=== PATIENT | female | born 1930 | race Caucasian/White ===

== ENCOUNTER 2019-07-27 15:35 | Observation (INO) | payer MEDICARE ==
[2019-07-27 16:14] LABS: #Basophils 0.1 thou/uL (0.0-0.2); #Eosinphils 0.3 thou/uL (0.0-0.7); #Lymphocytes 1.5 thou/uL (1.20-3.40); #Monocytes 0.8 thou/uL (0.11-0.59); %Basophils 0.9 % (0.0-1.0); %Eosinophils 3.5 % (0.0-10.0); %Lymphocytes 17.2 % (21.0-51.0); %Monocytes 9.1 % (0.0-10.0); %Neutrophils 69.3 % (42.0-75.0); Hemoglobin 15.8 g/dL (12.0-16.0); Mean Corpuscular HGB CONC 34.1 g/dL (32.0-36.0); Mean Corpuscular Hemoglobin 32.7 pg (27.0-31.0); Mean Platelet Volume 8.2 fL (7.4-10.4); Platelet Count 264 thou/uL (130-400); RBC Distribution Width 11.2 % (11.5-14.5); Red Blood Cell (RBC) Count 4.84 mill/uL (4.20-5.40); White Blood Cell (WBC) Count 8.7 thou/uL (4.8-10.8)
[2019-07-27 16:37] LABS: ALT (SGPT) 11 U/L (8-55); AST (SGOT) 19 U/L (5-34); Albumin 4.1 g/dL (3.4-4.8); Alkaline Phosphatase 83 U/L (40-110); Anion Gap 14 mmol/L (10-20); BUN (Urea Nitrogen) 12 mg/dL (9.8-20.1); Bilirubin, Total 0.8 mg/dL (0.2-1.2); CK (CPK) 96 U/L (29-168); Calc. Creatinine Clearance 0 mL/min (70-130); Calcium 8.6 mg/dL (7.8-10.44); Carbon Dioxide 21 mmol/L (23-31); Chloride 107 mmol/L (98-107); Estimated GFR-MDRD 50; Globulin 3.4 g/dL (2.4-3.5); Glucose 98 mg/dL (83-110); Lipase 41 U/L (8-78); Potassium 3.8 mmol/L (3.5-5.1); Protein, Total 7.5 g/dL (6.0-8.3); Sodium 138 mmol/L (136-145)
--- NOTE | 2019-07-27 16:49 | RAD ---
EXAM: CHEST ONE VIEW: 07/27/19 HISTORY: Chest pain. Palpitations. Chest pressure. COMPARISON: 11/25/15. FINDINGS: Minimal horizontal linear parenchymal changes in the left base, stable. Heart size is within normal l imits. No confluent pneumonia, overt edema, or pleural effusion. IMPRESSION: No significant acute intrathoracic disease. Minimal linear chronic changes in the left base. POS: [facility]
[2019-07-27] MEDS ORDERED: Mag-Al 1200 mg/1200 mg/30 ML UDCUP ONE (18:19)
[2019-07-27] MEDS ORDERED: Lidocaine Viscous Sol 2% 15 ml UD Cup ONE (18:19)
[2019-07-27 19:41] LABS: Troponin I Less than 0.010 ng/mL (< 0.028)
--- NOTE | 2019-07-27 19:45 | ULT ---
ULTRASOUND DOPPLER DUPLEX VENOUS LEFT LOWER EXTREMITY: DATE: 07/27/2019 HISTORY: 89-year-old female with left lower extremity edema TECHNIQUE: Grayscale, color-flow, and spectral analysis, of major veins of left lower extremity. FINDINGS: There is demonstration of blood flow with normal compressibility, of the left common femoral, profund a femoral, greater saphenous, femoral, popliteal, and posterior tibial, veins. IMPRESSION: Negative. No deep venous thrombosis of left lower extremity.
[2019-07-27] MEDS ORDERED: Acetaminophen 325 MG TAB PO PRN ×2 (21:02→22:31)
[2019-07-27] MEDS ORDERED: Ondansetron ODT 4 MG TAB SL PRN (21:02)
[2019-07-27] MEDS ORDERED: Ondansetron PF 4 MG/2 ML Vial IVP PRN ×2 (21:02→22:31)
[2019-07-27 22:09] VITALS: BMI 22.8
[2019-07-27 22:21] LABS: Troponin I Less than 0.010 ng/mL (< 0.028)
[2019-07-27] MEDS ORDERED: Ondansetron ODT 4 MG TAB PO PRN (22:31)
[2019-07-27] MEDS ORDERED: Acetaminophen 650 MG Suppository PR PRN (22:31)
--- NOTE | 2019-07-27 23:11 | PDOC.HHP ---
Hospitalist HPI - History of Present Illness Palpitations and nausea History of Present Illness: Patient presents complaining of an episode of palpitations. When asked about reported chest pain she states she never did or has experienced chest pain. Patient states this episode was brief and reports having some increased belching and epigastric discomfort. States she has issues with severe reflux and has been waiting to see a GI doctor. Requesting to be evaluated by one while she is here since she wont be able to go back home to [place] for several days. States she has also been having issues with urine and stool incontinence for the last 2 years since due to "fractured spine" and requesting to be evaluated for that as well. Patient reports she was going to be seeing a Urologist and wanting to see one while she is here. Patient also mentioned long standing pain in left 2nd toe with no history of injury. I have confirmed that at present she does not feel nauseated and is not experiencing palpitations and those are in fact that main symptoms that brought her in today. She reports feeling lightheaded when the palpitations occur. Denies any shortness of breath. No cough or hemoptysis. Complaints of long standing issues with varicose veins and occasional swelling in her legs. Patient reports having a history of afib and is on Eliquis. ED Course: EKG done in the ED showed NSR with HR of 62. No ST changes, t waves were normal. CXR: No significant acute intrathoracic disease. Minimal linear chronic changes in the left base. Labs: Normal FBC. BUN 12, creat 1.03, GFR 50 (no baseline for comparison). LFTs normal. Trop negative x 2. D-dimer 0.57. Venous doppler done showed no evidence of DVT. GI cocktail given in ED, patient states it helped. Has been asymptomatic since. Hospitalist ROS - Review of Systems Constitutional: denies: fever, chills, sweats, weakness, malaise, other Eyes: denies: pain, vision change, conjunctivae inflammation, eyelid inflammation, redness, other ENT: denies: ear pain, ear discharge, nose pain, nose discharge, nose congestion , mouth pain, mouth swelling, throat pain, throat swelling, other Respiratory: denies: cough, dry, shortness of breath, hemoptysis, SOB with excertion, pleuritic pain, sputum, wheezing, other Cardiovascular: reports: palpitations. denies: chest pain, orthopnea, paroxysmal noc. dyspnea, edema, light headedness, other Gastrointestinal: reports: nausea, abdominal pain (epigastric burning with reflux), other (occasional stool incontinence/urgency, no paraesthesias/numbness , x 2 years). denies: vomiting, diarrhea, constipation, melena, hematochezia Genitourinary: reports: frequency, incontinence (occasional, awaiting urology evaluation in [place]) Musculoskeletal: reports: foot pain (pain to left 2nd toe) Neurological: denies: weakness, numbness, incoordination, change in speech, confusion, seizures, other Hospitalist History - Past Medical History Source: patient Cardiac: reports: AFIB, HTN Endocrine: reports: Hyperthyroidism - Past Surgical History Past Surgical History: reports: Total Hip Replacement (right hip) - Family History Family History: reports: no pertinent history - Social History Smoking Status: Never smoker Alcohol: reports: Occassional (drinks a glass of wine daily) Living Situation: With Family Activity level: uses cane/walker (able to walk independently, sometimes requires her walker) - Exam General Appearance: NAD, awake alert Eye: PERRL, anicteric sclera ENT: dry oral mucosa Neck: supple, no lymphadenopathy Heart: RRR, normal peripheral pulses Respiratory: CTAB, normal chest expansion, no tachypnea Gastrointestinal: soft, non-tender, non-distended, no guarding, no rigidity Extremities: no edema Extremities - other findings: dry skin Skin: no rashes Neurological: cranial nerve grossly intact, normal sensation to touch Musculoskeletal: normal tone, normal strength, no muscle wasting Psychiatric: normal affect, normal behavior, A&O x 3 Hospitalist Results - Labs Result Diagrams: 07/27/19 16:01 07/27/19 16:01 Lab results: WBC 8.7 thou/uL (4.8-10.8) 07/27/19 16:01 Hgb 15.8 g/dL (12.0-16.0) 07/27/19 16: Hct 46.4 % (36.0-47.0) 07/27/19 16:01 MCV 96.0 fL (78.0-98.0) 07/27/19 16:01 Plt Count 264 thou/uL (130-400) 07/27/19 16:01 Neutrophils % 69.3 % (42.0-75.0) 07/27/19 16:01 Sodium 138 mmol/L (136-145) 07/27/19 16:01 Potassium 3.8 mmol/L (3.5-5.1) 07/27/19 16:01 Chloride 107 mmol/L (98-107) 07/27/19 16:01 Carbon Dioxide 21 mmol/L (23-31) L 07/27/19 16:01 BUN 12 mg/dL (9.8-20.1) 07/27/19 16:01 Creatinine 1.03 mg/dL (0.6-1.1) 07/27/19 16:01 Glucose 98 mg/dL (83-110) 07/27/19 16:01 Calcium 8.6 mg/dL (7.8-10.44) 07/27/19 16:01 Total Bilirubin 0.8 mg/dL (0.2-1.2) 07/27/19 16:01 AST 19 U/L (5-34) 07/27/19 16:01 ALT 11 U/L (8-55) 07/27/19 16:01 Alkaline Phosphatase 83 U/L (40-110) 07/27/19 16:01 Creatine Kinase 96 U/L (29-168) 07/27/19 16:01 Troponin I Less than 0.010 ng/mL (< 0.028) 07/27/19 21:48 Serum Total Protein 7.5 g/dL (6.0-8.3) 07/27/19 16:01 Albumin 4.1 g/dL (3.4-4.8) 07/27/19 16:01 Lipase 41 U/L (8-78) 07/27/19 16:01 - Radiology Interpretation Chest x-ray Status: report reviewed by nd Hospitalist H&P A/P - Problem (1) Palpitations Code(s): R00.2 - PALPITATIONS Status: Acute (2) Nausea Code(s): R11.0 - NAUSEA Status: Acute (3) Lightheaded Code(s): R42 - DIZZINESS AND GIDDINESS Status: Acute (4) GERD (gastroesophageal reflux disease) Code(s): K21.9 - GASTRO-ESOPHAGEAL REFLUX DISEASE WITHOUT ESOPHAGITIS Status: Chronic (5) Urine incontinence Code(s): R32 - UNSPECIFIED URINARY INCONTINENCE Status: Chronic (6) Toe pain, chronic Code(s): M79.676 - PAIN IN UNSPECIFIED TOE(S); G89.29 - OTHER CHRONIC PAIN Status: Chronic (7) History of atrial fibrillation Code(s): Z86.79 - PERSONAL HISTORY OF OTHER DISEASES OF THE CIRCULATORY SYSTEM Status: Chronic (8) Hyperlipidemia Code(s): E78.5 - HYPERLIPIDEMIA, UNSPECIFIED Status: Chronic Qualifiers: Hyperlipidemia type: unspecified Qualified Code(s): E78.5 - Hyperlipidemia , unspecified (9) Hypertension Code(s): I10 - ESSENTIAL (PRIMARY) HYPERTENSION Status: Chronic Qualifiers: Hypertension type: essential hypertension Qualified Code(s): I10 - Essential (primary) hypertension (10) Hypothyroidism Code(s): E03.9 - HYPOTHYROIDISM, UNSPECIFIED Status: Chronic Qualifiers: Hypothyroidism type: unspecified Qualified Code(s): E03.9 - Hypothyroidism , unspecified - Plan Plan: Continue to trend troponins, add TSH, Mg+ and BNP. Cardiac monitoring. Rule out underlying UTI. Bladder scan, post void, to rule out retention. Famotidine for reflux. Reconcile home meds once verified. Orthostatic BP. Gentle hydration. Patient with multiple chronic complaints, likely to be addressed by her PCP. CODE STATUS: FULL Surrogate decision maker: Cassie Jorge, her [id number].
[2019-07-28 02:51] LABS: Bacteria/HPF None Seen HPF (None Seen); Bilirubin Negative (Negative); Blood, Urine Negative (Negative); Clarity Clear (Clear); Glucose, Urine (Dipstick) Normal (Negative); Leukocyte 25 Leu/uL (Negative); Nitrite Negative (Negative); Protein, Urine (Dipstick) Negative (Neg-Trace); RBC/HPF 0-3 HPF (0-3); Squamous Epithelial 0-3 HPF (0-3); Urobilinogen Normal mg/dL (Less than 2); WBC/HPF 0-3 HPF (0-3)
[2019-07-28 02:52] LABS: Urine Culture Reflex No No
[2019-07-28 04:31] LABS: #Basophils 0.1 thou/uL (0.0-0.2); #Eosinphils 0.3 thou/uL (0.0-0.7); #Lymphocytes 1.2 thou/uL (1.20-3.40); #Monocytes 0.7 thou/uL (0.11-0.59); #Neutrophils 3.3 thou/uL (1.40-6.50); %Basophils 1.3 % (0.0-1.0); %Eosinophils 6.1 % (0.0-10.0); %Lymphocytes 21.5 % (21.0-51.0); %Monocytes 12.1 % (0.0-10.0); Hemoglobin 13.8 g/dL (12.0-16.0); Mean Corpuscular HGB CONC 33.7 g/dL (32.0-36.0); Mean Corpuscular Volume 95.1 fL (78.0-98.0); Platelet Count 237 thou/uL (130-400); RBC Distribution Width 11.3 % (11.5-14.5); Red Blood Cell (RBC) Count 4.32 mill/uL (4.20-5.40); White Blood Cell (WBC) Count 5.5 thou/uL (4.8-10.8)
[2019-07-28 04:57] LABS: Anion Gap 10 mmol/L (10-20); BUN (Urea Nitrogen) 11 mg/dL (9.8-20.1); Calc. Creatinine Clearance 48 mL/min (70-130); Calcium 7.9 mg/dL (7.8-10.44); Carbon Dioxide 25 mmol/L (23-31); Chloride 109 mmol/L (98-107); Estimated GFR-MDRD 70; Glucose 96 mg/dL (83-110); Potassium 3.7 mmol/L (3.5-5.1); Sodium 140 mmol/L (136-145)
[2019-07-28] MEDS: Levothyroxine Sodium 25 MCG TAB PO SCH (05:43)
[2019-07-28] MEDS ORDERED: Famotidine/PF 20 mg/2ml Vial SLOW IVP SCH (09:00)
[2019-07-28] MEDS: Apixaban 2.5 MG TAB PO SCH ×2 (09:16→19:42)
[2019-07-28] MEDS: Aspirin 81 mg Enteric Coated Tablet PO SCH (09:17)
--- NOTE | 2019-07-28 15:17 | CON ---
DATE OF CONSULTATION: 07/28/2019 REASON FOR CONSULTATION: Palpitations and chest discomfort. PRIMARY CORPORATE ACCOUNTANT: Tj Fletcher MD HISTORY OF PRESENT ILLNESS: Ms. Jorge is a very pleasant 89-year-old white female, who comes to the hospital for several complaints. She is very adamant that she never said pain to any of the physicians. When everyone keeps asking about chest pain, she denies it. However, when I asked her if she had any chest discomfort, she said she did feel last night some discomfort in the midsternal area. She feels it is her reflux. She states that she felt nauseated and diaphoretic. This lasted for about an hour. She felt palpitations at the same time. She called EMS. When EMS arrived, they gave her sublingual nitroglycerin, which did not make her symptoms improved. She then got four baby aspirins, which she says made her symptoms a lot better. Eventually, her symptoms had resolved by the time she was in the ER here in the hospital. She was admitted for further evaluation. She was ruled out with negative troponins. Cardiology is being consulted for further evaluation and care. PAST MEDICAL HISTORY: 1. History of atrial fibrillation. 2. Hypertension. 3. Hyperthyroidism. 4. Vitamin D deficiency. PAST SURGICAL HISTORY: 1. Hip fracture repair. 2. Heart catheterization some years ago, which was unremarkable. FAMILY HISTORY: Noncontributory. SOCIAL HISTORY: Occasional alcohol use. No tobacco or drugs. OUTPATIENT MEDICATIONS: 1. Eliquis 2.5 mg b.i.d. 2. Sublingual nitroglycerin p.r.n. 3. Diltiazem 240 mg a day. 4. Calcium carbonate 500 mg q.i.d. 5. Aspirin 81 a day. 6. Atorvastatin 40 mg at bedtime. 7. Metoprolol succinate 25 mg a day. 8. Levothyroxine 25 mcg a day. ALLERGIES: NO KNOWN DRUG ALLERGIES. REVIEW OF SYSTEMS: A 12-point review of systems was done and was all negative unless stated in the history of present illness. PHYSICAL EXAMINATION: VITAL SIGNS: Temperature 98.6, pulse 58, respiratory rate 16, satting 97% on room air, blood pressure 136/67. GENERAL: Awake, alert, oriented x3, in no distress. HEENT: Normocephalic, atraumatic. NECK: Supple. LUNGS: Clear. CARDIOVASCULAR: S1, S2. No S3 or S4. No murmurs. ABDOMEN: Soft. Positive bowel sounds. EXTREMITIES: No edema. SKIN: Warm and dry. LABORATORY DATA: Laboratory work was reviewed. CBC was unremarkable. D-dimer was mildly elevated. Chemistry was unremarkable. Troponin was negative x2. BNP was 236. TSH was 3.5. UA was unremarkable. Chest x-ray was reviewed. Venous ultrasound showed no evidence of DVT. I cannot find results of heart catheterization. However, looking at discharge summary, there was no flow-limiting disease. This was back in July of 2015, just four years ago. ASSESSMENT: 1. Chest discomfort. It is certainly atypical and likely gastroesophageal reflux disease. 2. Minimal coronary artery disease in heart catheterization four years ago. 3. Several other complaints like lower extremity edema with negative ultrasound for deep venous thrombosis. She also has some kidney issues that she wishes to see a urologist for. PLAN: 1. Unlikely to be a cardiac issue. At this time, we will get a stress with an echo. If this is unremarkable, she may be discharged home with followup. 2. She states that she lives in [place] and she is only here visiting her children. She has been here since April though and there is no certain time for her to go back given the coronavirus outbreak. Thank you for letting us participate in the care of your patient. Dr. Fletcher, her primary oracle consultant, will follow up in the morning. Job ID: [id number]
--- NOTE | 2019-07-28 16:32 | PDOC.HOSPP ---
- Subjective Encounter Date: 07/28/19 Encounter Time: 15:00 Subjective: Patient seen and examined for CP/Palpitations. No new CP or palpitations. No other complaints. No overnight events - Objective Vital Signs & Weight: Vital Signs (12 hours) Temp Pulse Resp BP Pulse Ox 07/28/19 15:41 98.3 F 71 16 165/85 H 97 07/28/19 11:40 98.6 F 58 L 16 146/68 H 97 07/28/19 07:25 98.5 F 58 L 16 136/67 94 L Weight Weight 136 lb 14.4 oz I&O: 07/27/19 07/28/19 07/29/19 06:59 06:59 06:59 Intake Total 150 Output Total 260 Balance -110 Result Diagrams: 07/28/19 04:23 07/28/19 04:23 EKG Reviewed by me: Yes (Tele SR) Hospitalist ROS - Review of Systems Respiratory: denies: cough, dry, shortness of breath, hemoptysis, SOB with excertion, pleuritic pain, sputum, wheezing, other Cardiovascular: denies: chest pain, palpitations, orthopnea, paroxysmal noc. dyspnea, edema, light headedness, other Gastrointestinal: denies: nausea, vomiting, abdominal pain, diarrhea, constipation, melena, hematochezia, other - Medication Medications: Active Medications Generic Name Dose Route Start Last Admin Trade Name Freq PRN Reason Stop Dose Admin Apixaban 2.5 mg 07/28/19 09:00 07/28/19 09:16 Eliquis PO 2.5 mg BID EDGAR Administration Aspirin 81 mg 07/28/19 09:00 07/28/19 09:17 Ecotrin PO 81 mg DAILY EDGAR Administration Diltiazem HCl 240 mg 07/28/19 09:00 07/28/19 09:22 Cardizem Cd PO Not Given DAILY EDGAR Levothyroxine Sodium 25 mcg 07/28/19 06:00 07/28/19 05:43 Synthroid PO 25 mcg 0600 EDGAR Administration Metoprolol Succinate 25 mg 07/28/19 09:00 07/28/19 09:23 Toprol Xl PO Not Given DAILY EDGAR Sodium Chloride 10 ml 07/28/19 09:00 07/28/19 09:17 Flush - Normal Saline IVF 10 ml Q12HR EDGAR Administration - Exam General Appearance: NAD Neck: supple, no JVD Heart: RRR, no gallops, no rubs, normal peripheral pulses Respiratory: no wheezes, no rales, no ronchi, normal chest expansion Gastrointestinal: soft, non-tender, non-distended, normal bowel sounds Extremities: no cyanosis, no clubbing, no edema Neurological: no new deficit Psychiatric: normal affect, A&O x 3 Hosp A/P - Plan DVT proph w/SCDs CP/Palpitations Par Afib on anticoag HTN HLD CKD 3 CAD Hypothyroidism PLAN: Cont ASA/Eliquis Cont Toprol/Cardizem Await Stess test/Echo per Cardiology Cont other meds as above
[2019-07-28] MEDS ORDERED: Atorvastatin Calcium 40 MG TAB PO SCH (21:00)
[2019-07-29] MEDS: Levothyroxine Sodium 25 MCG TAB PO SCH (04:57)
[2019-07-29] MEDS: Apixaban 2.5 MG TAB PO SCH (07:56)
[2019-07-29] MEDS: Aspirin 81 mg Enteric Coated Tablet PO SCH (07:56)
[2019-07-29] MEDS ORDERED: Famotidine/PF 20 mg/2ml Vial SLOW IVP SCH (09:00)
[2019-07-29] MEDS ORDERED: ADENOSINE 60 MG/20 ML VIAL ONE (09:03)
--- NOTE | 2019-07-29 10:23 | PDOC.HOSPP ---
- Subjective Encounter Date: 07/29/19 Encounter Time: 08:00 Subjective: Patient seen and examined for CP - resolved. No new complaints. No overnight events - Objective Vital Signs & Weight: Vital Signs (12 hours) Temp Pulse Resp BP BP BP Pulse Ox 07/29/19 07:49 98 F 66 16 148/73 H 94 L 07/29/19 04:52 176/66 H 122/70 134/78 07/29/19 03:00 98.1 F 88 16 166/76 H 95 Weight Weight 139 lb 11.2 oz I&O: 07/28/19 07/29/19 07/30/19 06:59 06:59 06:59 Intake Total 150 520 Output Total 260 675 Balance -110 -155 Result Diagrams: 07/28/19 04:23 07/28/19 04:23 EKG Reviewed by me: Yes (Tele SR) Hospitalist ROS - Review of Systems Cardiovascular: denies: chest pain, palpitations, orthopnea, paroxysmal noc. dyspnea, edema, light headedness, other Gastrointestinal: denies: nausea, vomiting, abdominal pain, diarrhea, constipation, melena, hematochezia, other - Medication Medications: Active Medications Generic Name Dose Route Start Last Admin Trade Name Freq PRN Reason Stop Dose Admin Apixaban 2.5 mg 07/28/19 09:00 07/29/19 07:56 Eliquis PO 2.5 mg BID EDGAR Administration Aspirin 81 mg 07/28/19 09:00 07/29/19 07:56 Ecotrin PO 81 mg DAILY EDGAR Administration Atorvastatin Calcium 40 mg 07/28/19 21:00 07/28/19 19:42 Lipitor PO 40 mg HS EDGAR Administration Diltiazem HCl 240 mg 07/28/19 09:00 07/29/19 10:15 Cardizem Cd PO Not Given DAILY EDGAR Famotidine 20 mg 07/29/19 09:00 07/29/19 07:56 Pepcid SLOW IVP 20 mg DAILY EDGAR Administration Levothyroxine Sodium 25 mcg 07/28/19 06:00 07/29/19 04:57 Synthroid PO 25 mcg 0600 EDGAR Administration Metoprolol Succinate 25 mg 07/28/19 09:00 07/29/19 10:15 Toprol Xl PO Not Given DAILY EDGAR Sodium Chloride 10 ml 07/28/19 09:00 07/29/19 07:57 Flush - Normal Saline IVF 10 ml Q12HR EDGAR Administration Sodium Chloride 10 ml 07/27/19 21:02 07/28/19 19:42 Flush - Normal Saline IVF 10 ml PRN PRN Administration Saline Flush - Exam General Appearance: NAD Heart: RRR, no gallops Respiratory: no wheezes, no ronchi Gastrointestinal: non-tender, non-distended, normal bowel sounds Extremities: no cyanosis Neurological: no new deficit Hosp A/P - Plan DVT proph w/SCDs CP/Palpitations Par Afib HTN HLD CKD 3 CAD Hypothyroidism PLAN: Cont ASA/Eliquis/Toprol/Cardizem Await Stess test/Echo Cardio input Cont other meds as above
--- NOTE | 2019-07-29 11:07 | NM ---
EXAM: NM Cardiac Stress W EF WF PROVIDED CLINICAL HISTORY: Chest pain COMPARISON: None RADIOPHARMACEUTICAL: 28.8 millicuries technetium 99m labeled sestamibi IV stress 10.3 millicuries technetium 99m labeled sestamibi IV rest FINDINGS: There is a moderate area of moderately reduced radiotracer activity involving the lateral wall, prese nt at both rest and nonattenuated corrected stress. This demonstrates improvement on the attenuation correction stress images, compatible with soft tissue attenuation. There is no evidence f or reversibility to suggest ischemia. Gated data demonstrate normal myocardial wall motion and thickening with calculated LVEF 80%. Calculated TID is 1.08. IMPRESSION: 1. No scintigraphic evidence for ischemia. 2. Calculated LVEF 80%.
[2019-07-29 11:08] VITALS: TEMP 97.9
[2019-07-29 11:51] VITALS: BP 151/95
--- NOTE | 2019-07-29 14:04 | DIS ---
DATE OF ADMISSION: 07/27/2019 DATE OF DISCHARGE: 07/29/2019 DISCHARGE DISPOSITION: Home. FOLLOWUP: 1. Follow up with primary care physician in 1 week. 2. Follow up with Dr. Fletcher in 1 to 2 weeks. ALLERGIES: NO KNOWN DRUG ALLERGIES. DISCHARGE MEDICATIONS: Toprol-XL was discontinued per Cardiology recommendation. Protonix was added. All other home medications were left unchanged. INPATIENT STRIP FEEDER: Cardiology, Dr. Fletcher. The patient was seen and examined on the day of discharge. Please refer to my progress note for details. BRIEF HOSPITAL COURSE: The patient is an 89-year-old female with paroxysmal atrial fibrillation and hypertension, presented to the emergency room with palpitations along with chest discomfort. Please refer to the history and physical for further details. The patient was admitted to the hospital with a diagnosis of chest discomfort along with palpitations. She was found to have significant bradycardia with heart rate in 40s to 50s. For this reason, Toprol-XL was discontinued. She was evaluated by Cardiology, Dr. Fletcher. She underwent a Cardiolite stress test that was negative for reversible ischemia. There was no wall motion abnormalities. Ejection fraction was 80% with TID of 1.08. Toprol-XL was discontinued per Cardiology recommendation. She has been cleared by Cardiology for discharge. She was advised to follow up with Cardiology as outpatient. SIGNIFICANT LABORATORY DATA: BNP 236. Troponin was negative. BUN 12, creatinine 1.03. FINAL DIAGNOSES: 1. Chest discomfort. 2. Palpitations. 3. Paroxysmal atrial fibrillation. 4. Chronic anticoagulation. 5. Hypertension. 6. Hyperlipidemia. 7. Chronic kidney disease, stage 3. 8. Coronary artery disease. 9. Hypothyroidism. 10. Gastroesophageal reflux disease. The patient understands the above plan of care. Job ID: [id number]
--- NOTE | 2019-08-02 15:42 | EKG ---
Test Reason : Blood Pressure : / mmHG Vent. Rate : 062 BPM Atrial Rate : 062 BPM P-R Int : 166 ms QRS Dur : 072 ms QT Int : 456 ms P-R-T Axes : -11 -10 078 degrees QTc Int : 462 ms Normal sinus rhythm Nonspecific ST and T wave abnormality Abnormal ECG Confirmed by IHSAN ORDOÑEZ DO ([id number]), design editor MARGA DIAZ ([id number] on 08/02/2019 3:41:59 PM Referred By: Confirmed By:IHSAN ORDOÑEZ DO
== END 2019-07-29 14:14 | disposition home or self-care (01) ==
LOC: ERS 15:35 → 2NO 18:56
PROVIDERS: ADMIT Internal Medicine; ATTEND Internal Medicine
DX: R07.89 Other chest pain (principal); I48.0 Paroxysmal atrial fibrillation; I12.9 Hypertensive chronic kidney disease with stage 1 through stage 4 chronic kidney disease, or unspecified chronic kidney disease; E78.5 Hyperlipidemia, unspecified; N18.3 Chronic kidney disease, stage 3 (moderate); I25.10 Atherosclerotic heart disease of native coronary artery without angina pectoris; E03.9 Hypothyroidism, unspecified; E55.9 Vitamin D deficiency, unspecified; M79.676 Pain in unspecified toe(s); K21.9 Gastro-esophageal reflux disease without esophagitis; Z79.01 Long term (current) use of anticoagulants; Z98.890 Other specified postprocedural states; Z79.82 Long term (current) use of aspirin; Z79.899 Other long term (current) drug therapy
CPT/HCPCS: 71045; 78452; 80048; 80053; 81001; 82550; 83690; 83735; 83880; 84443; 84484 ×2; 85025 ×2; 85379; 93005; 93017; 93971; 96374; 97139; 99285; A9500; G0378 ×4; 36415; J0153; S0028